=== PATIENT | female | born 1980 | race Caucasian/White ===

== ENCOUNTER 2023-04-20 13:39 | Outpatient (CLI) | payer BC, SELFPAY | END 2023-04-20 13:40 | disposition home or self-care (01) | PROVIDERS: PCP Physician Assistant Medical; Referring Provider Physician Assistant Medical; Visit Provider Physician Assistant Medical | DX: Z00.00 Encounter for general adult medical examination without abnormal findings (principal); F41.9 Anxiety disorder, unspecified; E66.9 Obesity, unspecified; R05.9 Cough, unspecified; J32.9 Chronic sinusitis, unspecified; J45.909 Unspecified asthma, uncomplicated; J45.40 Moderate persistent asthma, uncomplicated | CPT/HCPCS: 80053; 80061; 84443 ==

== ENCOUNTER 2023-05-18 10:53 | Outpatient (CLI) | payer BC, SELFPAY ==
[2023-05-18 22:59] LABS: Chlamydia DNA Amplified* NOT DETECTED (No Detected); GC DNA Amplified* NOT DETECTED (No Detected)
== END 2023-05-18 10:54 | disposition home or self-care (01) ==
PROVIDERS: PCP Physician Assistant Medical; Visit Provider Physician Assistant Medical
DX: Z11.3 Encounter for screening for infections with a predominantly sexual mode of transmission (principal)
CPT/HCPCS: 86592; 86703; 86706; 86803; 87340; 87491; 87591

== ENCOUNTER 2023-07-22 12:53 | Outpatient (CLI) | payer BC, SELFPAY ==
--- NOTE | 2023-07-22 13:00 | CRLHL7_ITS ---
For Patients: As a result of the Century Cures Act, medical imaging exams and procedure reports are released immediately into your electronic medical record. You may view this report before your referring provider. If you have questions, please contact your health care provider. BILATERAL SCREENING MAMMOGRAM WITH COMPUTER-AIDED DETECTION AND TOMOSYNTHESIS TECHNIQUE: CC and MLO views were obtained. These mammographic images have been obtained using full-field digital technique. These mammographic images were interpreted with the benefit of computer-aided detection. Breast Tomosynthesis was used in this interpretation. COMPARISON FILM: 03/02/22, 11/11/20 FINDINGS: There are scattered areas of fibroglandular density. IMPRESSION: There is no radiographic evidence for malignancy. ASSESSMENT: BI-RADS Category 1: Negative RECOMMENDATION: Routine screening mammogram in 1 year. A lay language report of this examination will be provided to the patient. Troy Morrison M.D. Diagnostic Radiologist [email or web address] PT/Dictated by: Troy Morrison MD @ 07/25/2023 11:57:00 AM (Electronically Signed)
== END 2023-07-22 12:54 | disposition home or self-care (01) ==
LOC: MAMMO 12:54
PROVIDERS: PCP Physician Assistant Medical; Visit Provider Physician Assistant Medical
DX: Z12.31 Encounter for screening mammogram for malignant neoplasm of breast (principal)
CPT/HCPCS: 77063; 77067

== ENCOUNTER 2025-03-14 15:32 | Outpatient (CLI) | payer SELFPAY | END 2025-03-14 15:33 | disposition home or self-care (01) | PROVIDERS: PCP Physician Assistant Medical; Visit Provider Physician Assistant Medical | DX: R42 Dizziness and giddiness (principal); F41.8 Other specified anxiety disorders; E78.5 Hyperlipidemia, unspecified; Z11.3 Encounter for screening for infections with a predominantly sexual mode of transmission; Z11.4 Encounter for screening for human immunodeficiency virus [HIV]; Z11.59 Encounter for screening for other viral diseases | CPT/HCPCS: 80053; 80061; 84443; 86592; 86703; 86706; 86803; 87340; 87491; 87591 ==

== ENCOUNTER 2025-07-02 14:01 | Outpatient (CLI) | payer BC, SELFPAY ==
--- NOTE | 2025-07-02 14:00 | CRLHL7_ITS ---
For Patients: As a result of the Century Cures Act, medical imaging exams and procedure reports are released immediately into your electronic medical record. You may view this report before your referring provider. If you have questions, please contact your health care provider. BILATERAL DIGITAL SCREENING MAMMOGRAM WITH COMPUTER-AIDED DETECTION AND TOMOSYNTHESIS CLINICAL HISTORY: Routine screening exam. COMPARISON: 07/22/2023, 03/02/2022, 11/11/2020, TECHNIQUE: Digital mammogram in CC and MLO projections including computer-aided detection (CAD). Tomosynthesis was used in this interpretation. BREAST COMPOSITION: There are scattered areas of fibroglandular density. FINDINGS: RIGHT Breast: Focal nodular density within the lower inner quadrant 4 cm from the nipple. LEFT Breast: No suspicious findings. IMPRESSION: RIGHT breast asymmetry/mass. RECOMMENDATIONS: Additional mammographic views of the RIGHT breast including 3D spot-compression CC/MLO. RIGHT breast ultrasound may also be required. The [facility] will contact the patient. A lay language report of this examination will be provided to the patient. BI-RADS Category 0: Incomplete: Need Additional Imaging Evaluation Dictated by Troy Morrison MD @ 07/03/2025 11:38:21 AM /Dictated by: Troy Morrison MD @ 07/03/2025 11:38:00 AM (Electronically Signed)
== END 2025-07-02 14:02 | disposition home or self-care (01) ==
LOC: MAMMO 14:05
PROVIDERS: PCP Physician Assistant Medical; Visit Provider Physician Assistant Medical
DX: Z12.31 Encounter for screening mammogram for malignant neoplasm of breast (principal); N63.10 Unspecified lump in the right breast, unspecified quadrant
CPT/HCPCS: 77063; 77067

== ENCOUNTER 2025-07-04 08:34 | Outpatient (CLI) | payer BC, SELFPAY | END 2025-07-04 08:35 | disposition home or self-care (01) | LOC: NFLDREF 07-09 06:49 | PROVIDERS: PCP Physician Assistant Medical; Referring Provider Physician Assistant Medical; Visit Provider Physician Assistant Medical | DX: R53.82 Chronic fatigue, unspecified (principal); Z00.00 Encounter for general adult medical examination without abnormal findings | CPT/HCPCS: 82306; 82607; 82728 ==

== ENCOUNTER 2025-07-12 08:43 | Outpatient (CLI) | payer BC, SELFPAY ==
--- NOTE | 2025-07-12 08:45 | CRLHL7_ITS ---
For Patients: As a result of the Cures Act, medical imaging exams and procedure reports are released immediately into your electronic medical record. You may view this report before your referring provider. If you have questions, please contact your health care provider. DIGITAL DIAGNOSTIC RIGHT MAMMOGRAM USING TOMOSYNTHESIS AND COMPUTER-AIDED DETECTION RIGHT BREAST ULTRASOUND CLINICAL HISTORY: RIGHT breast mass/asymmetry. COMPARISON: 07/02/2025, 07/22/2023, 03/02/2022. TECHNIQUE: Digital RIGHT mammogram in two projections with computer-aided detection. Tomosynthesis utilized. Real-time ultrasound imaging of RIGHT breast with imaging documentation. BREAST COMPOSITION: There are scattered areas of fibroglandular density. FINDINGS: 3D spot compression CC/MLO RIGHT breast mammogram images submitted. Persistent nodular density is present within the medial RIGHT breast without architectural distortion or suspicious calcifications. Targeted RIGHT breast ultrasound performed. At 1 o`clock 5 cm from the nipple, there is a simple circumscribed cyst which measures 3 millimeters. At 2 o`clock 5 cm from the nipple there are clustered microcysts measuring in total 8 x 5 x 5 millimeters. IMPRESSION: Benign fibrocystic changes. No evidence of malignancy. RECOMMENDATIONS: Routine screening mammography. A lay language report of this examination will be provided to the patient. BI-RADS Category 2: Benign Dictated by Troy Morrison MD @ 07/19/2025 10:53:08 AM j/Dictated by: Troy Morrison MD @ 07/19/2025 10:53:00 AM (Electronically Signed)
--- NOTE | 2025-07-12 09:15 | CRLHL7_ITS ---
For Patients: As a result of the Cures Act, medical imaging exams and procedure reports are released immediately into your electronic medical record. You may view this report before your referring provider. If you have questions, please contact your health care provider. SEE DIGITAL DIAGNOSTIC RIGHT MAMMOGRAM PERFORMED SAME DAY CRL:[email or web address] silver/Dictated by: Troy Morrison MD @ 07/19/2025 10:53:00 AM (Electronically Signed)
== END 2025-07-12 08:44 | disposition home or self-care (01) ==
LOC: MAMMO 08:43
PROVIDERS: PCP Physician Assistant Medical; Visit Provider Physician Assistant Medical
DX: N63.10 Unspecified lump in the right breast, unspecified quadrant (principal); R92.8 Other abnormal and inconclusive findings on diagnostic imaging of breast
CPT/HCPCS: 76642; 77065; G0279

== ENCOUNTER 2025-07-30 10:30 | Outpatient (CLI) | payer BC, SELFPAY ==
--- NOTE | 2025-09-03 14:08 | W.PM.SLEEP ---
Sleep Study Details Details Interpreting Provider: Mihai Date of Sleep Study: 07/30/25 Sleep Study Details: STUDY TYPE:? Home unattended ? BMI:? 37.44 ORDERING PROVIDER:Matt Sanabria INDICATION:? Concern for sleep apnea ? SLEEP SUMMARY:? 440 minutes RESPIRATORY SUMMARY:? AHI 4.0 per rule 1A, 2.2 per CMS guideline Low oxygen 81 2% of study oxygen below 90% Snoring 85.7% PERIODIC LIMB MOVEMENTS OF SLEEP:? Not recorded CARDIAC:? Range 56-101, mean 71.8 beats per minute IMPRESSION:? This study does not demonstrate clinically significant obstructive sleep apnea although it did deep demonstrate some desaturations. RECOMMENDATION: If sleep disorder strongly suspected would recommend an in-lab study or repeat study with sedative hypnotic agent.
== END 2025-07-30 10:31 | disposition home or self-care (01) ==
LOC: SLEEP 10:31
PROVIDERS: PCP Physician Assistant Medical; Visit Provider Physician Assistant Medical
DX: G47.19 Other hypersomnia (principal); R06.83 Snoring
CPT/HCPCS: 95806